=== PATIENT | male | born 1980 | race Caucasian/White ===

== ENCOUNTER 2025-02-03 15:07 | Emergency (ER) | payer OTHER, SELFPAY ==
[2025-02-03 15:08] VITALS: BP 127/93
[2025-02-03 15:28] LABS: Urine Character Clear (Clear)
[2025-02-03 15:30] LABS: Hematocrit 45.3 % (39.0-52.0); Hemoglobin 15.8 g/dL (13.0-18.0); Mean Corp Hgb Conc. 34.9 g/dL (33.0-37.0); Mean Corpuscular Volume 84.7 fL (80.0-94.0); Platelet Count 221 10^3/uL (130-400); Red Cell Dist. Width 12.0 % (11.5-14.5)
[2025-02-03 15:55] LABS: Absolute Neutrophils -Man Diff 1.9 10^3/uL (1.4-6.5)
[2025-02-03 15:56] LABS: Normal RBC Morphology Yes; Platelets Checked Yes; Total Cells Counted 100
[2025-02-03 16:00] LABS: ALT (SGPT) 43 U/L (0-50); AST (SGOT) 34 U/L (17-59); Albumin 4.8 g/dl (3.5-5.0); Alkaline Phosphatase 85 U/L (38-126); Blood Urea Nitrogen 13 mg/dl (9-20); Calcium 9.4 mg/dl (8.4-10.2); Carbon Dioxide 25 mmol/L (22-30); Chloride 106 mmol/L (98-107); Glucose 106 mg/dl (70-99); Lipase 144 U/L (23-300); Potassium 4.3 mmol/L (3.5-5.1); Sodium 140 mmol/L (135-145); Total Protein 7.6 g/dl (6.3-8.2); eGFR > 60.00
[2025-02-03 16:09] LABS: Urine Squamous Cell 0-2 /LPF (Few)
--- NOTE | 2025-02-03 17:18 | ED.GENMED ---
History of Present Illness
General
Chief Complaint: Fever
Source: patient
Exam Limitations: none
Time Seen by Provider: 02/03/25 17:07
Nursing documentation reviewed up to this point in time: agreed with
History of Present Illness
History of Present Illness:
Patient to ED with complaint of RLQ abdominal pain. States he developed fever and chills on thurs, chills, diaphoresis continue. Last night he noted RLQ abd. pain. No n/v/d. He was seen by PCP who felt his symptoms were related to a viral
illness. To ED accompanied by spouse for eval.
Past History
Past History
ED Past Medical History: GERD and HTN
ED Past Surgical History: Orthopedic (Right knee surgery)
Patient has exhibited threatening behavior?: No
PSI?: No
Social History
Tobacco: Smoker
Alcohol: Occasional
Personal:
Living: with family
Review of Systems
Review of Systems
Allergies reviewed?: Yes
All Other Systems: ROS reviewed and negative except as documented in HPI and ROS
Constitutional: Reports fever and chills
EENT: Reports no symptoms
Respiratory: Reports no symptoms
Cardiac: Reports no symptoms
ABD/GI: Reports abdominal pain
: Reports no symptoms
Musculoskeletal: Reports no symptoms
Skin: Reports no symptoms
Neurological: Reports no symptoms
Psychiatric: Reports no symptoms
Phy Exam
General Physical Exam
General Presentation: well appearing and mild distress
General age: appears stated age
General Skin: warm and dry
General Habitus: normal
General Mental: alert
Cardiovascular Exam
Cardiovascular Exam: regular rate/rhythm and no edema
Pulmonary Exam
Pulmonary Exam: no respiratory distress
Gastrointestinal Exam
Gastrointestinal Exam: normal bowel sounds, soft, no organomegaly, no pulsatile mass, non distended and abnormal bowel sounds
Palpation: left upper quadrant: No tenderness, left lower quadrant: No tenderness, right upper quadrant: Mild tenderness and right lower quadrant: Moderate tenderness
Musculoskeletal Exam
Musculoskeletal Exam: full ROM and neuro vasc intact
Skin Exam
Skin Exam: normal color, warm/dry and no rash
Psychiatric Exam
Psychiatric Exam: normal mood/affect
Course
Orders/Labs/Results
Orders:
Orders
02/03/25 15:21
Complete Blood Count/With Diff Urgent
Comprehensive Metabolic Panel Urgent
Lipase Urgent
Manual Differential Urgent
Urinalysis Reflex To Culture Urgent
Date Specimen was Collected: 02/03/25
Time Specimen was Collected: 15:11
Urine Microscopic Reflex Cult Urgent
Urine Culture Urgent
CLARE Source: U
Specimen Description:
Obtained by: Random
Date Specimen was Collected: 02/03/25
Time Specimen was Collected: 15:11
02/03/25 17:18
CT Abd/pel W Iv And Oral Contr Urgent
Comment:
Reason For Exam: fever, RLQ pain
Iohexol [Omnipaque] See Protocol PO NOW STA
Abnormal Lab Results
02/03/25
15:21
Segmented Neutrophils 33 L %
(42-75)
Glucose 106 H mg/dl
(70-99)
Urine Ketones 1+ A
(Negative)
Ur Occult Blood Reflex 2+ A
(Negative)
Leukocyte Esterase Rfl 1+ A
(Negative)
Urine RBC 3-6 A /HPF
(0-2)
Urine Bacteria (Reflex) Many A
(Negative)
Urine Albumin (Reflex) 2+ A
(Neg - Trace)
02/03/25 15:21
02/03/25 15:21
Vital Signs
Initial and Last Documented VS:
Initial Vital Signs
Temp Pulse Resp BP Pulse Ox
97.7 F 74 18 127/93 98
02/03/25 15:08 02/03/25 15:08 02/03/25 15:08 02/03/25 15:08 02/03/25 15:08
Last Documented Vital Signs
Temp Pulse Resp BP Pulse Ox
97.7 F 72 18 130/71 98
02/03/25 15:08 02/03/25 18:16 02/03/25 18:16 02/03/25 21:40 02/03/25 18:16
*Radiology
Radiology exam reviewed: radiology read reviewed
*Pulse Oximetry
SaO2: 98
Oxygen Mode of Delivery: Room air
Patient hypoxic: no
*Critical Care Note
Total Time (30-74mins, 75-104mins- exclusive of procedures): Not Applicable
Update Note
Update Note:
Patient to ED with RLQ abdominal pain. VSS, he remains afebrile in ED> Labs reviewed, WBC 5.9. CT abd/pelvis reviewed. NO findings to explain his pain. Discussed results with him. WIll discharge home. He will follow upw ith PCP. Deb
instructions on s/s to return to ED and he is agreeable to plan
ED Attending Note
-
Portions of this chart may have been created with voice recognition software.� Occasional wrong word or��sound alike� substitutions may have occurred due to the inherent limitations of voice recognition software.
Discharge Plan
Departure
Patient Disposition: Home (Routine Discharge)
Date of Disposition: 02/03/25
Time of Disposition: 21:22
Patient with high blood pressure during this ER visit?: No
Condition: Good
Covid-19: Not Applicable
Discharge Problem:
Abdominal pain
Instructions: Abdominal Pain
Prescriptions:
No Action
No Current Medications
0
Referrals:
Eric Michael MD [Family Provider, Internal Medicine] - Tomorrow
Activity Restrictions/Additional Instructions:
Return to the emergency department immediately for any changes in/worsening of your symptoms.
Interventions
Interventions:
*Risk Screen - Suicide Last Done: 02/03/25 15:08
*General Assessment Last Done: 02/03/25 15:08
*Neglect/Abuse Screening Last Done: 02/03/25 18:20
*ED- Fall Risk Assessment Last Done: 02/03/25 21:40
*ED COVID-19 Vaccine History Last Done: 02/03/25 15:08
*ED Influenza Vaccine History Last Done: 02/03/25 15:08
*Nursing Disposition Last Done: 02/03/25 21:40
ED- Neurological Assessment Last Done: 02/03/25 18:21
ED-Skin Assessment Last Done: 02/03/25 18:21
Discharge Date and Time
Discharge Date/Time: 02/03/25 21:41
Print Language: CUBAN
[2025-02-03] MEDS: OMNIPAQUE 50 ML PO (18:13)
[2025-02-03 18:17] VITALS: BP 126/81; BMI 28.6
[2025-02-03 21:40] VITALS: BP 130/71
== END 2025-02-03 21:41 | disposition home or self-care (01) ==
LOC: EMR 15:07
PROVIDERS: Emergency Medicine; EMERGENCY PHYSICIAN Emergency Medicine; FAMILY PHYSICIAN Internal Medicine
DX: R10.31 Right lower quadrant pain (principal); I10 Essential (primary) hypertension; K21.9 Gastro-esophageal reflux disease without esophagitis; F17.200 Nicotine dependence, unspecified, uncomplicated
CPT/HCPCS: 99284; 74177; 80053; 81003; 81015; 83690; 85025; 87086; Q9967